=== PATIENT | female | born 1990 | race Caucasian/White ===

== ENCOUNTER 2023-07-31 18:47 | Inpatient (IN) | payer BC, OTHER ==
[~2023-07-31] VITALS: Ht 167.6 cm; Wt 83.0 kg
[2023-07-31 19:35] LABS: HEMATOCRIT. 38.6 % (36.0-48.0); HEMOGLOBIN. 13.2 g/dL (12.0-16.0); MEAN CORPUSCULAR HGB CONC 34.3 g/dL (31.0-37.0); MEAN CORPUSCULAR VOLUME 87.4 fL (81.0-99.0); MEAN PLATELET VOLUME 7.9 fl (7.4-10.4); PLATELET 244 x1000/uL (130-400); RED BLOOD CELL COUNT 4.42 mill/uL (4.2-5.4); RED CELL DISTRIBUTION WIDTH 12.8 % (11.6-14.6); WHITE BLOOD COUNT 14.6 x1000/uL (4.5-11.0)
[2023-07-31 19:36] LABS: DIFFERENTIAL COMMENT 1
[2023-07-31 19:43] LABS: CHLORIDE 107 mEq/L (98-107); POTASSIUM 3.7 mEq/L (3.5-5.1); SODIUM 140 mEq/L (136-145)
[2023-07-31 19:44] LABS: CALCIUM 9.3 mg/dL (8.7-10.4); CARBON DIOXIDE 26 mEq/L (21-32)
[2023-07-31 19:49] LABS: CREATININE 0.8 mg/dL (0.6-1.0); GLUCOSE 105 mg/dL (70-105); UREA NITROGEN BLOOD 9 mg/dL (9-23)
[2023-07-31 19:51] LABS: ALANINE AMINOTRANSFERASE 12 IU/L (10-49); ALBUMIN 4.3 g/dL (3.2-4.8); ASPARTATE AMINOTRANSFERASE 18 IU/L (<34); BILIRUBIN TOTAL 0.5 mg/dL (0.1-1.0); PROTEIN TOTAL 7.2 g/dL (6.0-8.3)
[2023-07-31 19:55] LABS: PLATELET ESTIMATE NORMAL
[2023-07-31] MEDS: ONDANSETRON HCL 4MG/2ML INJ IV ONE (22:42)
[2023-07-31] MEDS: SODIUM CHLORIDE 0.9% 1,000 ML IV ONE (22:42)
[2023-07-31 22:47] LABS: HCG SCREEN NEGATIVE
[2023-07-31] MEDS ORDERED: KETOROLAC 15MG/ML VIAL IV ONE (23:45)
[2023-08-01] MEDS: KETOROLAC 15MG/ML VIAL IV NR (00:10)
[2023-08-01] MEDS: CEFOXITIN SODIUM 2 G in DEXT 5% WATER 100 ML IV STA (01:34)
[2023-08-01] MEDS: MORPHINE SULFATE 4 MG/ML INJ (FOR IV/IM USE) IV ONE (01:54)
[2023-08-01 01:58] LABS: CLARITY URINE CLEAR (CLEAR); COLOR URINE YELLOW (YELLOW); GLUCOSE URINE NEGATIVE (NEGATIVE); KETONES URINE 2+ (NEGATIVE); LEUKOCYTE ESTERASE URINE NEGATIVE (NEGATIVE); NITRITE URINE NEGATIVE (NEGATIVE); OCCULT BLOOD URINE TRACE (NEGATIVE); PROTEIN URINE NEGATIVE (NEGATIVE); SPECIFIC GRAVITY URINE 1.026 (1.005-1.030); UROBILINOGEN URINE 0.2 E.U./dL (0.2-1.0)
[2023-08-01] MEDS: SODIUM CHLORIDE 0.9% 1,000 ML IV ONE (02:04)
[2023-08-01 04:00] VITALS: BP 106/62; PULSE 63; RESP 17; TEMP 97.3
[2023-08-01] MEDS ORDERED: IOHEXOL-300 100 ML BOTTLE ONE (05:32)
[2023-08-01 06:05] VITALS: BP 106/62; PULSE 64; RESP 17; TEMP 97.3
[2023-08-01] MEDS ORDERED: BUPIVACAINE HCL/PF 0.5% (5MG/ML) 10ML ONE (07:37)
[2023-08-01 07:38] LABS: BACTERIA URINE 1+; RBC URINE 0-2 /hpf (0-2); SQUAMOUS EPITHELIAL CELL URINE FEW /lpf (RARE/1+); WBC URINE 0-2 /hpf (0-2)
[2023-08-01] MEDS: DEXT 5%/0.9% NACL 1,000 ML IV SCH (07:39)
[2023-08-01] MEDS: PANTOPRAZOLE SODIUM 40 MG/VIAL IV SCH (07:40)
[2023-08-01] MEDS: PIPERACILLIN/TAZO 3.375G/50ML 50 ML IV SCH (07:40)
[2023-08-01] MEDS: KETOROLAC 15MG/ML VIAL IV PRN (07:41)
[2023-08-01 08:00] VITALS: BP 94/66; PULSE 78; RESP 18; TEMP 97.9
[2023-08-01] MEDS ORDERED: SKIN ADHESIVE 0.7 GM EA TOP ONE (08:58)
[2023-08-01] MEDS ORDERED: SUCCINYLCHOLINE CHLORIDE 200MG/10ML IV ONE (10:28)
[2023-08-01] MEDS ORDERED: DEXAMETHASONE 4MG/ML 1ML VIAL ONE (10:28)
[2023-08-01] MEDS ORDERED: ONDANSETRON HCL 4MG/2ML INJ ONE (10:28)
[2023-08-01] MEDS ORDERED: NEOSTIGMINE METHYLSULFATE 1MG/ML 10 ML VIAL ONE (10:28)
[2023-08-01] MEDS ORDERED: CEFAZOLIN SODIUM 1000MG/VIAL ONE (10:28)
[2023-08-01] MEDS ORDERED: ROCURONIUM BROMIDE 10MG/ML VIAL 5ML IV ONE (10:29)
[2023-08-01] MEDS ORDERED: FENTANYL CITRATE/PF 50MCG/ML 2ML VIAL ONE (10:29)
[2023-08-01] MEDS ORDERED: GLYCOPYRROLATE 0.2 MG/ML 2ML VIAL ONE ×2 (10:29)
[2023-08-01] MEDS ORDERED: PROPOFOL 200MG/20ML VIAL IV ONE (10:30)
[2023-08-01] MEDS ORDERED: MIDAZOLAM HCL 2 MG/2 ML VIAL ONE (10:30)
[2023-08-01] MEDS ORDERED: MEPERIDINE HCL/PF 25MG/ML CPJ IV PRN ×2 (11:15)
[2023-08-01] MEDS ORDERED: LABETALOL 5MG/ML SYR 20 MG/4 ML SYRINGE IV PRN ×2 (11:15)
[2023-08-01] MEDS ORDERED: ONDANSETRON HCL 4MG/2ML INJ IV PRN ×3 (11:15→11:30)
[2023-08-01] MEDS ORDERED: HYDROMORPHONE HCL/PF 2MG/ML CPJ IV PRN (11:15)
[2023-08-01] MEDS ORDERED: MORPHINE SULFATE 2 MG/ML CPJ (NOT FOR IM USE) IV PRN (11:30)
[2023-08-01] MEDS ORDERED: HYDROCODONE/ACETAMINOPHEN 5/325MG TABLET PO PRN (11:30)
[2023-08-01] MEDS ORDERED: MORPHINE SULFATE 4 MG/ML INJ (FOR IV/IM USE) IV PRN (11:30)
[2023-08-01] MEDS: HYDROMORPHONE HCL/PF 2MG/ML CPJ IV PRN (11:43)
[2023-08-01 12:22] LABS: HEPATITIS B SURFACE ANTIGEN NEGATIVE (Negative)
[2023-08-01 12:44] LABS: HEPATITIS C AB NON REACTIVE (Neg) (Negative)
[2023-08-01] MEDS: HYDROCODONE/ACETAMINOPHEN 5/325MG TABLET PO PRN (13:21)
[2023-08-01] MEDS: SODIUM CHLORIDE 0.9% INJ 3ML FLUSH IVF SCH (14:07)
[2023-08-01] MEDS: DEXT 5%/0.45% NACL KCL 20MEQ/L 1,000 ML IV SCH (15:09)
[2023-08-01 16:00] VITALS: BP 92/57; PULSE 78; RESP 19; TEMP 98.1
[2023-08-01] MEDS ORDERED: NALOXONE HCL 0.4MG/ML VIAL IV PRN (17:30)
[2023-08-01 20:00] VITALS: BP 90/54; PULSE 76; RESP 18; TEMP 97.1
[2023-08-02] VITALS: BP 95/59; PULSE 66; RESP 18; TEMP 98.1
[2023-08-02 04:00] VITALS: BP 108/70; PULSE 70; RESP 18; TEMP 99.7
[2023-08-02 07:22] LABS: BASOPHILS % 0.7 % (0.0-2.0); EOSINOPHILS % 2.1 % (0.0-5.0); HEMATOCRIT. 35.5 % (36.0-48.0); HEMOGLOBIN. 11.9 g/dL (12.0-16.0); MEAN CORPUSCULAR HEMOGLOBIN 29.6 pg (28.0-32.0); MEAN CORPUSCULAR HGB CONC 33.6 g/dL (31.0-37.0); MEAN PLATELET VOLUME 8.5 fl (7.4-10.4); MONOCYTES % 7.3 % (2.0-8.0); NEUTROPHILS % 76.9 % (40.0-76.0); PLATELET 208 x1000/uL (130-400); RED BLOOD CELL COUNT 4.03 mill/uL (4.2-5.4); RED CELL DISTRIBUTION WIDTH 12.8 % (11.6-14.6); WHITE BLOOD COUNT 7.9 x1000/uL (4.5-11.0)
[2023-08-02 07:24] LABS: CHLORIDE 110 mEq/L (98-107); POTASSIUM 3.5 mEq/L (3.5-5.1); SODIUM 141 mEq/L (136-145)
[2023-08-02 07:25] LABS: CALCIUM 8.3 mg/dL (8.7-10.4); CARBON DIOXIDE 25 mEq/L (21-32)
[2023-08-02 07:30] LABS: CREATININE 0.8 mg/dL (0.6-1.0); GLUCOSE 95 mg/dL (70-105); UREA NITROGEN BLOOD 6 mg/dL (9-23)
[2023-08-02 07:33] LABS: THYROID STIMULATING HORMONE 2.33 uIU/mL (0.55-4.78)
[2023-08-02 08:00] VITALS: BP 107/69; PULSE 73; RESP 18; TEMP 98.6
[2023-08-02 12:00] VITALS: BP 100/68; PULSE 70; RESP 19; TEMP 97.7
[2023-08-02 12:01] VITALS: BP 100/68; PULSE 98; TEMP 97.7; O2SAT 98
== END 2023-08-02 12:41 | disposition home or self-care (01) | DRG 399 ==
LOC: ER 18:47 → 6EST 08-01 01:47
PROVIDERS: ADMIT Hospitalist; ATTEND Hospitalist
PROC: 0DTJ4ZZ Resection of Appendix, Percutaneous Endoscopic Approach (ICD-10-PCS; principal; 2023-08-01)
DX: K35.80 Unspecified acute appendicitis (principal); F32.A Depression, unspecified; K21.9 Gastro-esophageal reflux disease without esophagitis; Z80.41 Family history of malignant neoplasm of ovary
CPT/HCPCS: 36415; 74177; 80048; 80053; 81003; 82962; 84443; 84703; 85025; 86705; 87340; 88304; 93005; 99285; C9113; J0330; J0690; J0694; J1100; J1170; J1885; J2250; J2405; J2543; J2704; J2710; J3010; J3490; J7030; J7060; Q9967